=== PATIENT | male | born 1935 | race Caucasian/White ===

== ENCOUNTER → 2018-01-03 12:32 | Outpatient (CLI) | payer MEDICARE, OTHER, SELFPAY ==
--- NOTE | 2018-01-03 | DI.US.S_ITS ---
PROCEDURE: US ARTERIAL DUPLEX LE LT INDICATIONS: PAIN IN LEFT LEG TECHNIQUE: Color and pulse Doppler interrogation was performed of the left lower extremity arterial system, with image documentation. COMPARISON: None. FINDINGS: Common femoral artery: 106 cm/sec, with triphasic flow. Deep femoral artery: 81 cm/sec, with biphasic flow. Proximal superficial femoral artery: 130 cm/sec, with biphasic flow. Mid superficial femoral artery: 112 cm/sec, with biphasic flow. Distal superficial femoral artery: 94 cm/sec, with biphasic flow. Popliteal artery: 78 cm/sec, with biphasic flow. Posterior tibial artery: 77 cm/sec, with biphasic flow. Anterior tibial artery/dorsalis pedis: 63 cm/sec, with biphasic flow. Curiel-scale imaging description: Minimal atheromatous plaque is present throughout the left lower extremity. IMPRESSION: No hemodynamically significant stenosis of the left lower extremity. Dictated by: Ciarra Luna M.D. on 01/03/2018 at 16:11 Approved by: Ciarra Luna M.D. on 01/03/2018 at 16:12
--- NOTE | 2018-01-03 | DI.ECHO.S_ITS ---
[facility]---------+ [facility] +---------+ : : [address] : [place] : : : : [id number] : : : : Phone: [phone]+ Echocardiogram Report + + :Name: DARÍO BONE Study Date: 01/03/2018 Height: 68.5 in: :[facility] Exam Location: [place] Weight: 161 lb : : Gender: Male BSA: 1.9 m2 : :: 1935 Age: 82 yrs BP: 160/70 mmHg: :Reason For Study: LEFT LEG PAIN : :Ordering Physician: Dr. Aguilera : :Janette Performed By: Paola Romero : :Referring: KEKE HOLLIS L : + + Interpretation Summary Left ventricular systolic function is mildly reduced. Left ventricular ejection fraction is estimated to be 45 +/- 5%. There is mild global hypokinesis of the left ventricle. Compared to the prior exam, left ventricular function is slightly improved. The left atrium is severely dilated. There is no Doppler evidence for an interatrial shunt. There is moderate mitral regurgitation. There is mild aortic valve sclerosis. The right ventricular systolic pressure is estimated at 27 mmHg assuming a right atrial pressure of 3 mm Hg. Procedure: A two-dimensional transthoracic echocardiogram with color flow and Doppler was performed. The study quality was technically adequate. Comparison is made with the echocardiogram of 04/05/17. The patient was in sinus bradycardia with heart rates between 52 and 66 bpm during the exam. Left Ventricle: There is mild concentric left ventricular hypertrophy. The left ventricle is normal in size. Left ventricular systolic function is mildly reduced. Left ventricular ejection fraction is estimated to be 45 +/- 5%. Compared to the prior exam, left ventricular function is slightly improved. There is mild global hypokinesis of the left ventricle. Right Ventricle: The right ventricle is normal in size and function. Atria: The left atrium is severely dilated. The right atrium is mildly dilated. There is no Doppler evidence for an interatrial shunt. Mitral Valve: The mitral valve leaflets appear thickened, but open well. There is moderate mitral regurgitation. Aortic Valve: The aortic valve is trileaflet. There is mild aortic valve sclerosis. The aortic valve opens well. No aortic regurgitation is present. Tricuspid Valve: The tricuspid valve is normal. There is trace tricuspid regurgitation. The right ventricular systolic pressure is estimated at 27 mmHg assuming a right atrial pressure of 3 mm Hg. Pulmonic Valve: The pulmonic valve leaflets are thin and pliable; valve motion is normal. There is a trace or physiologic amount of pulmonic regurgitation. Great Vessels: The aortic root is normal size. The ascending aorta is normal in size. The aortic arch is normal in size. The pulmonary is not well visualized. The IVC is of normal diameter and collapses greater than 50% with a sniff. This suggests a low right atrial pressure of 3 mm Hg. Pericardium/ Pleura There is no pericardial effusion. There is no pleural effusion. MMode/2D Measurements & Calculations LVIDd: 5.3 cm LVOT diam: 2.2 cm LVIDs: 4.7 cm Ao root diam: 3.3 cm FS: 12.8 % asc Aorta Diam: 3.0 cm EPSS: 1.1 cm Ao Arch Diam (Prox Trans): 2.5 cm IVSd: 1.2 cm LVPWd: 1.2 cm LV pompa. diameter/BSA (cm/m^2): 2.9 LV sys. diameter/BSA (cm/m^2): 2.5 LA A2 area: 36.7 cm2 RA long axis: 5.0 cm LA A4 area: 28.0 cm2 RA area: 18.9 cm2 LA length (vol): 6.8 cm RA vol: 61.1 ml LA vol: 128.0 ml RA : 32.6 ml/m2 LA vol index: 68.3 ml/m2 IVC diam: 1.2 cm RVD1 (basal): 4.0 cm RVD2 (mid): 2.9 cm TAPSE: 2.4 cm Doppler Measurements & Calculations Ao V2 max: 106.6 cm/sec LVOT Max Hal: 74.6 cm/sec Ao V2 mean: 68.4 cm/sec LV V1 max P.2 mmHg Ao max P.5 mmHg LV V1 VTI: 16.3 cm Ao mean P.3 mmHg BONG(I,D): 2.6 cm2 Ao V2 VTI: 22.8 cm BONG(V,D): 2.6 cm2 sev ratio: 0.72 BONG indexed to BSA (cm^2/m^2): 1.4 MV E max hal: 96.9 cm/sec TR max hal: 245.8 cm/sec MV A max hal: 40.2 cm/sec TR max P.2 mmHg MV E/A: 2.4 PA V2 max: 57.8 cm/sec Med Peak E' Hal: 4.3 cm/sec PA V2 mean: 41.3 cm/sec E/E' med: 22.5 PA mean P.77 mmHg Lat Peak E' Hal: 8.6 cm/sec PA pr(Accel): 39.1 mmHg E/E' lat: 11.2 E/e' average: 16.8 MV dec time: 0.15 sec MV P1/2t: 43.5 msec MVA(VTI): 2.2 cm2 MV V2 mean: 48.3 cm/sec MV P1/2t max hal: 97.6 cm/sec MV mean P.1 mmHg MVA(P1/2t): 5.1 cm2 MV V2 VTI: 27.0 cm Reading Physician:[id number] PM
== END ==
PROVIDERS: PCP Family Medicine; Visit Provider Family Medicine
DX: I08.0 Rheumatic disorders of both mitral and aortic valves (principal); I42.0 Dilated cardiomyopathy; M79.605 Pain in left leg
CPT/HCPCS: 93306; 93926

== ENCOUNTER → 2018-11-21 11:33 | Outpatient (CLI) | payer MEDICARE, OTHER, SELFPAY ==
--- NOTE | 2018-11-21 | DI.MRI.S_ITS ---
PROCEDURE: MR LUMBAR SPINE WO/W CON INDICATIONS: LOW BACK PAIN TECHNIQUE: Noncontrast sagittal T1 spin echo and T2 fast spin echo, sagittal STIR, axial T1 and T2 fast spin echo through the lumbar spine. In cases with scoliosis, additional coronal T2 fast spin echo may be performed. After the administration of contrast, sagittal and axial T1 spin echo with fat saturation through the lumbar spine. COMPARISON: [facility], CT, ABDOMEN/PELVIS WITH CONTRAST, 03/01/2014, 13:05. [facility] [place], CR, SPINE LUMB 2 OR 3VW, 05/14/2015, 11:23. [facility], MR, L-SPINE WITHOUT CONTRAST, 04/25/2015, 14:50. [facility], CR, XR LUMBAR PUNCT W ISOTOPE INJ, 09/08/2015, 10:44. [facility], MR, L-SPINE W&WO CONTRAST, 02/26/2016, 13:22. FINDINGS: Image quality: Excellent. Alignment and curvature: There is grade 1 retrolisthesis of L2 on L3 and grade 1 anterolisthesis of L4 on L5. Marrow: There is discectomy and posterior fusion at L3 at L4, L4-L5 and L5-S1. The right pedicle screws at L3 and L5 appear to traverse through or outside of the right lateral cortex of relevant vertebral bodies. There are degenerative endplate signal changes at multiple levels. No acute vertebral body compression fractures. No suspicious marrow enhancement. Spinal cord: Conus medullaris terminates at the L1-L2 level. Visualized spinal cord demonstrates normal signal, without suspicious enhancement. Paraspinous soft tissues: No paravertebral masses or abnormal enhancement. L1-L2: Preserved disc height. Mild disc desiccation. There is minimal posterior disc bulge. The central canal is patent. No foraminal stenosis. L2-L3: Preserved disc height. Mild disc desiccation. There is circumferential posterior disc bulge. Mild to moderate bilateral facet arthropathy and hypertrophy of ligamentum flavum. The central canal is mildly narrowed. Moderate left and mild right foraminal stenosis, increased compared to the last exam. . L3-L4: Surgically fused. The central canal is patent. Mild bilateral facet arthropathy. No central canal stenosis. Mild bilateral foraminal stenosis, unchanged from the last exam. L4-L5: Surgically fused. The central canal is patent. Mild bilateral facet arthropathy. No central canal stenosis. Mild bilateral foraminal stenosis, unchanged from the last exam. L5-S1: Surgically fused. The central canal is patent. Mild bilateral facet arthropathy. No central canal stenosis. Mild bilateral foraminal stenosis, unchanged from the last exam. IMPRESSION: 1. 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 2. Mild central canal stenosis at L2- L3. 3. Multilevel foraminal stenosis as described. 4. The right L3 and L5 pedicular screws may be malpositioned outside of the right lateral cortex of the relevant vertebral bodies. If clinically indicated, CT may be helpful to rule out hardware malpositioning or failure. Dictated by: Albino Zimmer M.D. on 11/21/2018 at 13:31 Approved by: Albino Zimmer M.D. on 11/21/2018 at 17:18
== END ==
PROVIDERS: PCP Family Medicine; Visit Provider Family Medicine
DX: M54.5 Low back pain (principal); M47.816 Spondylosis without myelopathy or radiculopathy, lumbar region; M47.817 Spondylosis without myelopathy or radiculopathy, lumbosacral region; M48.061 Spinal stenosis, lumbar region without neurogenic claudication; M48.07 Spinal stenosis, lumbosacral region; Z98.1 Arthrodesis status
CPT/HCPCS: 72158; A9579